=== PATIENT | female | born 1975 | race Caucasian/White ===

== ENCOUNTER 2021-06-23 13:50 | Emergency (ER) | payer SELFPAY ==
[~2021-06-23] VITALS: Ht 160 cm; Wt 70.0 kg
[2021-06-23 13:55] VITALS: BP 126/61
[2021-06-23] MEDS ORDERED: TETANUS,DIPTH,PERTUSS P/F (BOOSTRIX) 0.5 ML VIAL IM ONE (14:00)
[2021-06-23] MEDS ORDERED: LIDOCAINE/EPI 2% 1:100,00 (XYLOCAINE) 20 ML VIAL INJ ONE (14:00)
--- NOTE | 2021-06-23 14:37 | ED General ---
General Chief Complaint: Laceration Stated Complaint: LT WRIST LAC Nursing Triage Note: PT REPORTS SHE WAS CLEANING HER SHOWER AND THE GLASS DOOR CAME OFF THE TRACK AND SHATTERED. SHE HAS PUNCTURES AND SMALL LACERATIONS ON HER ARMS, HANDS, LEGS, AND FEET. PT HAD DRIED BLOOD ALL OVER HER ARMS AND LEGS UPON ARRIVAL. Source of Information: Patient Exam Limitations: No Limitations Allergies and Home Medications Allergies Coded Allergies: No Known Drug Allergies (Unverified , 06/23/21) Past Zssepsz-[id number]-Movube Hx Patient Social History Tobacco Use?: No Use of E-Cig and/or Vaping dev: No Substance use?: No Alcohol Use?: No Pt feels they are or have been: No Physical Exam Vital Signs Vital Signs - First Documented 06/23/21 13:55 Temp 36.7 Pulse 90 Resp 18 B/P (MAP) 126/61 (82) Pulse Ox 97 O2 Delivery Room Air Capillary Refill : Less Than 3 Seconds Height, Weight, BMI Height: '" Weight: lbs. oz. kg; 27.00 BMI Method: Progress/Results/Core Measures Suspected Sepsis SIRS Temperature: Pulse: 90 Respiratory Rate: 18 Blood Pressure 126 /61 Mean: 82 Results/Orders My Orders Orders - WALDO MARTINI MD Lidocaine/Epi 2% 1:100,000 (Xylocaine/Ep (06/23/21 14:00) Dipht,Pertuss(Acell),Tet Adult (Boostrix (06/23/21 14:00) Medications Given in ED Current Medications Medications Dose Ordered Sig/Karli Route Start Time Stop Time Status Last Admin Dose Admin Diphtheria/ Tetanus/Acell Pertussis 0.5 ml ONCE ONCE IM 06/23/21 14:00 06/23/21 14:01 DC 06/23/21 14:15 0.5 ML Lidocaine/ Epinephrine 20 ml ONCE ONCE INJ 06/23/21 14:00 06/23/21 14:01 DC 06/23/21 14:15 20 ML Vital Signs/I&O 06/23/21 13:55 Temp 36.7 Pulse 90 Resp 18 B/P (MAP) 126/61 (82) Pulse Ox 97 O2 Delivery Room Air Capillary Refill : Less Than 3 Seconds Blood Pressure Mean: 82 Departure Impression Primary Impression: Multiple lacerations Disposition: 01 HOME, SELF-CARE Condition: Improved Departure-Patient Inst. Decision time for Depature: 14:35 Referrals: KEN SOTO APRN (PCP) Primary Care Physician [facility] (Family) Primary Care Physician Patient Instructions: Laceration Repair With Stitches (DC) Add. Discharge Instructions: Wash thoroughly with flowing water to help evacuate all of the tiny glass shards at home. Allow the deeper wounds a few hours to clot before washing them deeply. Avoid submerging the sutured wound until suture is removed. You may have the sutures removed in 5 to 7 days. Monitor your wounds for signs of infection such as increasing redness, increasing swelling, puslike drainage, or fever. Return to care promptly if you notice any of these symptoms. There may be some tiny shards remaining in the wounds that may work out in the coming weeks to months. Call with questions or concerns. You may take Tylenol and/or ibuprofen for pain. Cover the larger wounds and the suture with a Band-Aid or dressing when active, sleeping, or in dirty environments. Leave open to air when at rest in a clean environment. All discharge instructions reviewed with patient and/or family. Voiced understanding. WALDO MARTINI MD June 23, 2021 14:37
== END 2021-06-23 14:40 | disposition home or self-care (01) ==
LOC: EDUNIT# 13:50 → ER FS 13:51
DX: S61.512A Laceration without foreign body of left wrist, initial encounter (principal); S41.112A Laceration without foreign body of left upper arm, initial encounter; S41.111A Laceration without foreign body of right upper arm, initial encounter; S61.412A Laceration without foreign body of left hand, initial encounter; S61.411A Laceration without foreign body of right hand, initial encounter; S81.812A Laceration without foreign body, left lower leg, initial encounter; S81.811A Laceration without foreign body, right lower leg, initial encounter; S91.312A Laceration without foreign body, left foot, initial encounter; S91.311A Laceration without foreign body, right foot, initial encounter; Z23 Encounter for immunization; W25.XXXA Contact with sharp glass, initial encounter; Y92.002 Bathroom of unspecified non-institutional (private) residence as the place of occurrence of the external cause; Y93.E5 Activity, floor mopping and cleaning
CPT/HCPCS: 12001; 90715